=== PATIENT | female | born 1950 | race Caucasian/White ===

== ENCOUNTER 2017-08-29 01:13 | Emergency (ER) | payer MEDICARE, OTHER ==
[~2017-08-29] VITALS: Ht 167.6 cm; Wt 94.5 kg
[~2017-08-29 01:13] MED LIST: BIOT5000 PO; CLON.2 PO; COZA50TA PO; GLUC500C3 PO; GLUCTAB PO; META0.52 PO; NIFE30TA57 PO; OMEG5CAP PO; OXYC1SOL5 PO; TAB-TAB PO; VENL25; VENL75 PO
[2017-08-29 01:15] VITALS: BP 198/89; PULSE 107; RESP 18; TEMP 98.1; O2SAT 94
[2017-08-29 01:26] VITALS: BP 176/79; PULSE 104; RESP 22; O2SAT 96
[2017-08-29] MEDS ORDERED: TRAZ100T6 PO (01:41)
[2017-08-29] MEDS ORDERED: NIFE10CA PO (01:41)
[2017-08-29] MEDS ORDERED: METO25TA3 PO (01:41)
[2017-08-29] MEDS ORDERED: ASPI81CH CHEW (01:41)
[2017-08-29] MEDS ORDERED: METF500T PO (01:41)
[2017-08-29] MEDS ORDERED: GLUC100017 PO (01:41)
[2017-08-29] MEDS ORDERED: MULTTAB67 PO (01:41)
[2017-08-29] MEDS ORDERED: ASCO100037 (01:41)
[2017-08-29] MEDS ORDERED: LOSA50TA PO (01:41)
[2017-08-29] MEDS ORDERED: BIOTCAP PO (01:41)
[2017-08-29] MEDS ORDERED: CLON0.1T PO (01:41)
[2017-08-29] MEDS ORDERED: OMEGCAP PO (01:41)
[2017-08-29] MEDS ORDERED: PSYLPOW4 PO (01:41)
[2017-08-29] MEDS ORDERED: VENL75TA PO (01:41)
[2017-08-29] MEDS ORDERED: RED0.25P (01:41)
--- NOTE | 2017-08-29 02:13 | PD ---
HPI Chief Complaint: Hypertension Time Seen by Provider: 02:03 Travel History International Travel<30 days: No Contact w/Intl Traveler<30days: No Traveled to known affect area: No History of Present Illness HPI The patient is a 67 year old female who presents to the [facility] emergency department with a history of tinnitus, tingling all over, and nausea that began when she woke up in the night. She denies any headache. She is on Nifedipine in the AM. She takes clonidine and losartan at night. She reports that her bp usually goes up at night. Her primary care physician was aware of this and did start her on clonidine at night for treatment. She reports that in spite of this she continues to have frequent episodes of awakening with the symptoms. The patient denies any history of fever, headache, neck pain, chest pain, shortness of breath, abdominal pain, vomiting, diarrhea, urinary symptoms , or other neurologic symptoms. She has had a recent cough and sneezing over the last two days. She reports that she feels this is related to allergy symptoms. She denies having any nasal discharge or productivity to her cough. PCP: Dr. Almaraz. [facility] Past Medical History Narrative Medical The patient's past medical history is significant for diverticulitis, copd, DM, hypertension, and tinnitus. Depression: Yes Cancer: No Cardiovascular Problems: Yes (htn) High Cholesterol: No COPD: Yes Diabetes: Yes Patient Takes Glucophage: Yes Endocrine: Yes Genitourinary: Yes (UTI'S) Hepatitis: Yes (Hep C) Hypertension: Yes Immune Disorder: No Musculoskeletal: Yes Neurologic: No Psychiatric: Yes Reproductive: Yes (HYSTERECTOMY FOR BLEEDING 2006) Respiratory: Yes Migraines: Yes (VISUAL MIGRANES, NO TREATMENT) Thyroid Disease: No Menopausal: Yes Dilation and Curettage (D&C): Yes Past Surgical History Narrative Surgical The patient's past surgical history is significant for hysterectomy, right wrist ORIF, dental extractions, d and C. AICD: No Arteriovenous Shunt: No Cholecystectomy: Yes Ear Surgery: No Endocrine Surgery: No Eye Surgery: No Gynecologic Surgery: Yes (HYSTERECTOMY 2006, D&C IN S) Hysterectomy: Yes Insulin Pump: No Joint Replacement: No Oral Surgery: Yes (TOOTH EXTRACTIONS ) Pacemaker: No Social History Alcohol Use: No Tobacco Use: No Substance Use: No Allergies-Medications (Allergen,Severity, Reaction): Coded Allergies: Sulfa (Sulfonamide Antibiotics) (Unverified Allergy, Mild, Hives, 08/29/17 ) Reported Meds & Prescriptions Reported Meds & Active Scripts Active Augmentin (Amoxicillin-Clavulanate) 875-125 Mg Tab 1 Tab PO BID Reported Red Yeast Rice (Red Yeast Rice Extract) 500 Mg/0.5 Gm Pow Unknown Dose DAILY Biotin 5 Mg Cap 5 Mg PO DAILY Trazodone (Trazodone HCl) 100 Mg Tablet 100 Mg PO HS Clonidine (Clonidine HCl) 0.1 Mg Tab 0.1 Mg PO HS Vitamin C (Ascorbic Acid) 1,000 Mg Tab.chew Glucosamine (Glucosamine Sulfate) 1,000 Mg Cap 1,000 Mg PO DAILY [place]-3 Fish Oil/Vitamin (Fish Oil-Cholecalciferol) 1,000-1,000 Mg Cap 1 Cap PO DAILY Multiple Vitamin 1 Tab 1 Tab PO DAILY Psyllium Powder 100 % Pow 1 Scoop PO TID PRN 1 rounded TEASPOON in 8 oz of liquid at the first sign of irregularity. Aspirin 81 Mg Chew 81 Mg CHEW DAILY Losartan (Losartan Potassium) 50 Mg Tab 50 Mg PO DAILY Effexor (Venlafaxine HCl) 75 Mg Tab 75 Mg PO Q12H Metoprolol Tartrate 25 Mg Tab Unknown Dose PO DAILY Nifedipine 10 Mg Cap Unknown Dose PO QID Metformin (Metformin HCl) 500 Mg Tab 500 Mg PO BIDPC Review of Systems Except as stated in HPI: all other systems reviewed are Neg General / Constitutional: No: Fever Eyes: No: Visual changes HENT: Positive: Other (tinnitus), No: Headaches, Neck Stiffness, Neck Pain, Earache Cardiovascular: No: Chest Pain or Discomfort Respiratory: Positive: Cough, Sneezing, No: Shortness of Breath Gastrointestinal: No: Abdominal Pain Genitourinary: No: Dysuria Musculoskeletal: No: Pain Skin: No Rash Neurologic: Positive: Paresthesia, No: Weakness, Focal Abnormalities, Headache , Change in Mentation, Slurred Speech, Sensory Disturbance Psychiatric: No: Depression Endocrine: No: Polydipsia Hematologic/Lymphatic: No: Easy Bruising Physical Exam Narrative General: The patient is a well-developed well-nourished female in no acute distress. Head and Neck exam: Head is normocephalic atraumatic. Eyes: EOMI, pupils are equal round and reactive to light. Nose: Midline septum with pink mucous membranes Mouth: Dentition unremarkable. Moist mucus membranes. Posterior oropharynx is not erythematous. No tonsillar hypertrophy. Uvula midline. Airway patent. Neck: No palpable lymphadenopathy. No nuchal rigidity. No thyromegaly. Cardiovascular: Regular rate and rhythm without murmurs, gallops, or rubs. No pulse deficit to the extremities on simultaneous auscultation and palpation of the radial artery. Lungs: Clear to auscultation bilaterally. No wheezes, rhonchi, or rales. Abdomen: Soft, without tenderness to palpation in all 4 quadrants of the abdomen. No guarding, rebound, or rigidity. Normal bowel sounds are audible. No tenderness on palpation of McBurney's point. Extremities: No clubbing, cyanosis, or edema. 2+ pulses in all 4 extremities. No calf tenderness on palpation. Back: No spinous process tenderness to palpation. No costovertebral angle tenderness to palpation. Neurologic Exam: Cranial nerves 2-12 were intact on exam. Strength is 5/5 in all 4 extremities. No sensory deficits noted. No dysdiadochokinesis. Good finger to nose and Heel to sutart bilaterally. Skin Exam: No rash noted. Intact skin that is warm and dry. Data Data Last Documented VS Vital Signs Date Time Temp Pulse Resp B/P (MAP) Pulse Ox O2 Delivery O2 Flow Rate FiO2 08/29/17 04:24 08/29/17 03:44 81 16 95 Room Air 08/29/17 01:15 98.1 Orders Orders Electrocardiogram (08/29/17 02:05) Complete Blood Count With Diff (08/29/17 02:05) Comprehensive Metabolic Panel (08/29/17 02:05) Creatine Kinase (Cpk) (08/29/17 02:05) Ckmb (Isoenzyme) Profile (08/29/17 02:05) Troponin I (08/29/17 02:05) B-Type Natriuretic Peptide (08/29/17 02:05) Prothrombin Time / Inr (Pt) (08/29/17 02:05) Act Partial Throm Time (Ptt) (08/29/17 02:05) Lipase (08/29/17 02:05) Urinalysis - C+S If Indicated (08/29/17 02:05) Magnesium (Mg) (08/29/17 02:05) Chest, Single Ap (08/29/17 02:05) Ct Brain W/O Iv Contrast(Rout) (08/29/17 02:05) Iv Access Insert/Monitor (08/29/17 02:05) Ecg Monitoring (08/29/17 02:05) Oximetry (08/29/17 02:05) Potassium Chloride (Kcl) (08/29/17 03:30) Clonidine (Catapres) (08/29/17 03:45) Ed Discharge Order (08/29/17 04:17) Labs Laboratory Tests Test 08/29/17 02:10 White Blood Count 9.4 TH/MM3 Red Blood Count 5.00 MIL/MM3 Hemoglobin 14.3 GM/DL Hematocrit 42.3 % Mean Corpuscular Volume 84.6 FL Mean Corpuscular Hemoglobin 28.5 PG Mean Corpuscular Hemoglobin Concent 33.7 % Red Cell Distribution Width 13.0 % Platelet Count 296 TH/MM3 Mean Platelet Volume 8.5 FL Neutrophils (%) (Auto) 53.4 % Lymphocytes (%) (Auto) 35.1 % Monocytes (%) (Auto) 9.0 % Eosinophils (%) (Auto) 2.1 % Basophils (%) (Auto) 0.4 % Neutrophils # (Auto) 5.0 TH/MM3 Lymphocytes # (Auto) 3.3 TH/MM3 Monocytes # (Auto) 0.8 TH/MM3 Eosinophils # (Auto) 0.2 TH/MM3 Basophils # (Auto) 0.0 TH/MM3 CBC Comment DIFF FINAL Differential Comment Prothrombin Time 9.7 SEC Prothromb Time International Ratio 0.9 RATIO Activated Partial Thromboplast Time 28.3 SEC Blood Urea Nitrogen 12 MG/DL Creatinine 0.68 MG/DL Random Glucose 157 MG/DL Total Protein 7.5 GM/DL Albumin 3.3 GM/DL Calcium Level 9.2 MG/DL Magnesium Level 1.8 MG/DL Alkaline Phosphatase 120 U/L Aspartate Amino Transf (AST/SGOT) 17 U/L Alanine Aminotransferase (ALT/SGPT) 20 U/L Total Bilirubin 0.2 MG/DL Sodium Level 139 MEQ/L Potassium Level 3.3 MEQ/L Chloride Level 102 MEQ/L Carbon Dioxide Level 28.7 MEQ/L Anion Gap 8 MEQ/L Estimat Glomerular Filtration Rate 87 ML/MIN Total Creatine Kinase 64 U/L Troponin I LESS THAN 0.02 NG/ML B-Type Natriuretic Peptide 11 PG/ML Lipase 180 U/L MDM Medical Decision Making Medical Screen Exam Complete: Yes Emergency Medical Condition: Yes Medical Record Reviewed: Yes Interpretation(s) Last Impressions Head CT 08/29/17204 Signed Impressions: Service Date/Time: Tuesday, August 29, 2017 02:32 - CONCLUSION: No definite acute intracranial findings. Hubert Forman MD Chest X-Ray 08/29/17204 Signed Impressions: Service Date/Time: Tuesday, August 29, 2017 02:13 - CONCLUSION: Minimal parenchymal opacity at the right lung base Hubert Forman MD Differential Diagnosis Intracranial hemorrhage, versus intracranial mass, versus hypertensive emergency , versus poorly controlled hypertension, versus anxiety disorder Narrative Course During the course of the patients emergency department visit, the patients history, examination, and differential diagnosis were reviewed with the patient. The patient had IV access obtained and blood work sent for analysis. The patient was put on a monitor technician with oximetry and blood pressure monitoring. An ECG was done on arrival. The patient's ECG reveals sinus rhythm , heart rate of 82, nonspecific T-wave abnormalities, no acute ST segment elevation. T waves are inverted in V1. Initially, I wrote for clonidine to be administered, however the patient's blood pressure came down on its own. The patients laboratory studies were reviewed and remarkable for a CBC that is unremarkable, CMP is remarkable for mild hypokalemia which was supplemented orally, glucose 157, alkaline phosphatase 120, cardiac enzymes within normal limits, BNP 11, albumin 3.3, lipase 180, PT 9.7, PTT 28.3. Radiology studies were reviewed and remarkable for a chest x-ray that shows minimal parenchymal opacity at the right lung base. CT scan of the brain showed no acute abnormality. On repeat evaluation the patient reports that the symptoms have resolved. The patient's blood pressure is noted to be in the 120s over 70s. The patient is unsure of the dose of the losartan that she is on. I recommended that she follow-up with her primary care physician by phone in the morning to discuss increasing her losartan dose. The patient on chest x-ray is noted to have reported infiltrate that is small in the right lung base. She does report having a cough but attributes this to allergies of the last couple of days. The patient is is instructed that if she develops any fevers, worsening cough or congestion, she should start an antibiotic. The patient is given a prescription for Augmentin at discharge. The patient is resting comfortably and feels better, is alert and in no distress. The patients results and examination findings were discussed with the patient. The repeat examination is unremarkable and benign. The history, exam, diagnostic testing, and current condition do not suggest any significant pathology to warrant further testing, continued ED treatment, admission, or surgical evaluation at this point. The vital signs have been stable. The patient does not have uncontrollable pain, intractable vomiting, or other significant symptoms. The patient's condition is stable and appropriate for discharge. The patient will pursue further outpatient evaluation with a primary care physician or other designated or consulting physician as indicated in the discharge instructions. The patient expressed understanding and was agreeable with this plan. Diagnosis Primary Impression: Hypertension Qualified Codes: I10 - Essential (primary) hypertension Additional Impression: Lung infiltrate Referrals: Primary Care Physician 1 day Patient Instructions: Acute Cough (ED), General Instructions, Hypertension (ED) Med/Other Pt SpecificInfo: Prescription(s) given Scripts Amoxicillin-Clavulanate (Augmentin) 875-125 Mg Tab 1 TAB PO BID for Infection, #20 TAB 0 Refills Prov: Lexie Camarena MD 08/29/17 Disposition: 01 DISCHARGE HOME Condition: Stable Lexie Camarena MD Aug 29, 2017 02:13
[2017-08-29 02:34] LABS: BASOPHIL % 0.4 % (0.0-2.0); EOSINOPHIL # 0.2 TH/MM3 (0-0.4); EOSINOPHIL % 2.1 % (0.0-4.0); HEMATOCRIT 42.3 % (35.0-46.0); HEMO FLAGS DIFF FINAL; LYMPH % 35.1 % (9.0-44.0); LYMPHOCYTE # 3.3 TH/MM3 (1.0-4.8); MEAN CELL VOLUME 84.6 FL (80.0-100.0); MEAN CORPUSCULAR HEMOGLOBIN 28.5 PG (27.0-34.0); MEAN CORPUSCULAR HGB CONC 33.7 % (32.0-36.0); NEUT % 53.4 % (16.0-70.0); PLATELET COUNT 296 TH/MM3 (150-450); WHITE BLOOD COUNT 9.4 TH/MM3 (4.0-11.0)
--- NOTE | 2017-08-29 02:36 | RADRPT ---
EXAM DATE/TIME: 08/29/2017 02:13 [facility] COMPARISON: CHEST SINGLE AP, February 04, 2016, 13:02. INDICATIONS : Cough. MEDICAL HISTORY : None. SURGICAL HISTORY : None. ENCOUNTER: Initial ACUITY: 1 day PAIN SCORE: 4/10 LOCATION: Bilateral chest FINDINGS: There is minimal parenchymal opacity at the right lung base. Left lung is clear. No evidence of effus ion. Cardiac contours are satisfactory. CONCLUSION: Minimal parenchymal opacity at the right lung base Hubert Forman MD on August 29, 2017 at 2:33 Board Certified Radiologist. This report was verified electronically.
[2017-08-29 02:39] VITALS: O2SAT 98
[2017-08-29 02:45] LABS: APTT (PATIENT) 28.3 SEC (24.3-30.1); INTERNATIONAL NORMALIZED RATIO 0.9 RATIO; PROTHROMBIN TIME - PATIENT 9.7 SEC (9.8-11.6)
--- NOTE | 2017-08-29 02:46 | RADRPT ---
EXAM DATE/TIME: 08/29/2017 02:32 [facility] COMPARISON: No previous studies available for comparison. INDICATIONS : High blood pressure with nausea RADIATION DOSE: 34.25 CTDIvol (mGy) MEDICAL HISTORY : Hypertension. Chronic obstructive pulmonary disease. Hepatitis C.Diabetes SURGICAL HISTORY : Cholecystectomy. Hysterectomy. ENCOUNTER: Initial ACUITY: 1 day PAIN SCALE: 0/10 LOCATION: cranial TECHNIQUE: Multiple contiguous axial images were obtained of the head. Using automated exposure control and adj ustment of the mA and/or kV according to patient size, radiation dose was kept as low as reasonably a chievable to obtain optimal diagnostic quality images. DICOM format image data is available electro nically for review and comparison. FINDINGS: There are patchy areas of mildly diminished white matter attenuation which are nonspecific but potent ially microvascular ischemic in etiology. There is no evidence of intracranial hemorrhage. No definit e mass. Nothing to specifically suggest vascular territory infarction. There is a tiny old lacunar in farct in the left putamen. The ventricles are symmetric and normal. The extracranial structures are b enign and intact. CONCLUSION: No definite acute intracranial findings. Hubert Forman MD on August 29, 2017 at 2:41 Board Certified Radiologist. This report was verified electronically.
[2017-08-29 03:00] LABS: ALT (GPT) 20 U/L (10-53); ANION GAP 8 MEQ/L (5-15); AST (GOT) 17 U/L (15-37); BICARBONATE 28.7 MEQ/L (21.0-32.0); BLOOD UREA NITROGEN 12 MG/DL (7-18); CHLORIDE 102 MEQ/L (98-107); GLOMERULAR FILTRATION RATE 87 ML/MIN (>89); MAGNESIUM 1.8 MG/DL (1.5-2.5); POTASSIUM 3.3 MEQ/L (3.5-5.1); SODIUM (NA) 139 MEQ/L (136-145)
[2017-08-29 03:04] LABS: ALKALINE PHOSPHATASE 120 U/L (45-117); TOTAL BILIRUBIN ADULT 0.2 MG/DL (0.2-1.0)
[2017-08-29 03:14] LABS: CREATINE KINASE 64 U/L (26-192)
[2017-08-29] MEDS ORDERED: POTASSIUM CHLORIDE 20 MEQ CONTROLLED RELEASE TAB PO ONE (03:30)
[2017-08-29] MEDS ORDERED: AUGM875T3 PO (03:40)
[2017-08-29 03:44] VITALS: BP 120/65; PULSE 81; RESP 16; O2SAT 95
[2017-08-29] MEDS ORDERED: cloNIDine HCL 0.1 MG TAB PO ONE (03:45)
--- NOTE | 2017-08-29 15:02 | EKG ---
Date Performed: 08/29/2017 Time Performed: 02:54:08 PTAGE: 67 years EKG: Sinus rhythm NONSPECIFIC T-WAVE ABNORMALITY BORDERLINE ECG PREVIOUS TRACING : 02/04/2016 17.24 Compared to prior tracing no significant change DOCTOR: Mainor Francisco Interpretating Date/Time 08/29/2017 15:01:06
== END 2017-08-29 04:49 | disposition home or self-care (01) ==
LOC: NEPE 01:13
DX: I10 Essential (primary) hypertension (principal); R91.8 Other nonspecific abnormal finding of lung field; B19.20 Unspecified viral hepatitis C without hepatic coma; J44.9 Chronic obstructive pulmonary disease, unspecified; E11.9 Type 2 diabetes mellitus without complications; R11.0 Nausea; Z79.84 Long term (current) use of oral hypoglycemic drugs; Z79.899 Other long term (current) drug therapy
CPT/HCPCS: 70450; 71010; 80053; 82550; 83690; 83735; 83880; 84484; 85025; 85610; 85730; 93005; 99285

== ENCOUNTER 2018-01-21 16:25 | Emergency (ER) | payer MEDICARE ==
[~2018-01-21 16:25] MED LIST changes: +ASCO100037; +ASPI-516 CHEW; +AUGM875T3 PO; -BIOT5000 PO; +BIOTCAP PO; -CLON.2 PO; +CLON0.1T PO; -COZA50TA PO; +GLUC100013 PO; -GLUC500C3 PO; -GLUCTAB PO; +LOSA50TA PO; -META0.52 PO; +METF500T PO; +METO25TA3 PO; +MULTTAB67 PO; +NIFE10CA PO; -NIFE30TA57 PO; -OMEG5CAP PO; +OMEGCAP PO; -OXYC1SOL5 PO; +PSYLPOW4 PO; +RED0.25P; -TAB-TAB PO; +TRAZ100T10 PO; -VENL25; -VENL75 PO; +VENL75TA PO
[2018-01-21 16:32] VITALS: BP 129/68; PULSE 82; RESP 19; TEMP 98.3; O2SAT 95
--- NOTE | 2018-01-21 17:16 | RADRPT ---
EXAM DATE/TIME: 01/21/2018 16:54 [facility] COMPARISON: No previous studies available for comparison. INDICATIONS : Right anterior chest pain MEDICAL HISTORY : Chronic obstructive pulmonary disease. Emphysema. Hypertension. Bronchitis SURGICAL HISTORY : None. ENCOUNTER: Initial ACUITY: 1 day PAIN SCORE: 2/10 LOCATION: Right chest FINDINGS: PA and lateral views of the chest demonstrate the lungs to be symmetrically aerated without evidence of mass, infiltrate or effusion. The cardiomediastinal contours are unremarkable. Osseous structure s are intact. CONCLUSION: No acute disease. Star Bennett Jr., MD on January 21, 2018 at 17:14 Board Certified Radiologist. This report was verified electronically.
[2018-01-21 20:03] LABS: AUTOMATED NEUTROPHIL # 6.3 TH/MM3 (1.8-7.7); BASOPHIL # 0.1 TH/MM3 (0-0.2); BASOPHIL % 0.5 % (0.0-2.0); EOSINOPHIL # 0.5 TH/MM3 (0-0.4); EOSINOPHIL % 4.8 % (0.0-4.0); HEMATOCRIT 38.6 % (35.0-46.0); HEMOGLOBIN 12.8 GM/DL (11.6-15.3); LYMPH % 25.4 % (9.0-44.0); LYMPHOCYTE # 2.7 TH/MM3 (1.0-4.8); MEAN CELL VOLUME 84.7 FL (80.0-100.0); MEAN CORPUSCULAR HEMOGLOBIN 28.1 PG (27.0-34.0); MEAN CORPUSCULAR HGB CONC 33.2 % (32.0-36.0); MEAN PLATELET VOLUME 8.2 FL (7.0-11.0); MONO % 9.5 % (0.0-8.0); NEUT % 59.8 % (16.0-70.0); PLATELET COUNT 290 TH/MM3 (150-450); RED BLOOD COUNT 4.55 MIL/MM3 (4.00-5.30); RED CELL DISTRIBUTION WIDTH 13.1 % (11.6-17.2); WHITE BLOOD COUNT 10.5 TH/MM3 (4.0-11.0)
--- NOTE | 2018-01-21 20:14 | PD ---
HPI Chief Complaint: Pain: Acute or Chronic Time Seen by Provider: 16:32 Travel History International Travel<30 days: No Contact w/Intl Traveler<30days: No Traveled to known affect area: No History of Present Illness HPI 67-year-old female presents to emergency department as an ERT. Patient was visiting her upstairs when she developed a pain under her right breast. She states the pain is alleviated by pressure if she pushes on it. Denies any trauma. No shortness of breath. No recent illnesses fever, or chills. She has no other symptoms to report. PFSH Past Medical History Depression: Yes Cancer: No Cardiovascular Problems: Yes High Cholesterol: No COPD: Yes Diabetes: Yes Endocrine: Yes Genitourinary: Yes (UTI'S) Hepatitis: Yes (Hep C) Hypertension: Yes Immune Disorder: No Musculoskeletal: Yes Neurologic: No Psychiatric: Yes Reproductive: Yes (HYSTERECTOMY FOR BLEEDING 2006) Respiratory: Yes Migraines: Yes (VISUAL MIGRANES, NO TREATMENT) Thyroid Disease: No Menopausal: Yes Dilation and Curettage (D&C): Yes Past Surgical History AICD: No Arteriovenous Shunt: No Cholecystectomy: Yes Ear Surgery: No Endocrine Surgery: No Eye Surgery: No Gynecologic Surgery: Yes (HYSTERECTOMY 2006, D&C IN S) Hysterectomy: Yes Insulin Pump: No Joint Replacement: No Oral Surgery: Yes (TOOTH EXTRACTIONS ) Pacemaker: No Social History Alcohol Use: No Tobacco Use: No Substance Use: No Allergies-Medications (Allergen,Severity, Reaction): Coded Allergies: Sulfa (Sulfonamide Antibiotics) (Unverified Allergy, Mild, Hives, 08/29/17 ) Reported Meds & Prescriptions Reported Meds & Active Scripts Active Augmentin (Amoxicillin-Clavulanate) 875-125 Mg Tab 1 Tab PO BID Reported Red Yeast Rice (Red Yeast Rice Extract) 500 Mg/0.5 Gm Pow Unknown Dose DAILY Biotin 5 Mg Cap 5 Mg PO DAILY Trazodone (Trazodone HCl) 100 Mg Tablet 100 Mg PO HS Clonidine (Clonidine HCl) 0.1 Mg Tab 0.1 Mg PO HS Vitamin C (Ascorbic Acid) 1,000 Mg Tab.chew Glucosamine (Glucosamine Sulfate) 1,000 Mg Cap 1,000 Mg PO DAILY [place]-3 Fish Oil/Vitamin (Fish Oil-Cholecalciferol) 1,000-1,000 Mg Cap 1 Cap PO DAILY Multiple Vitamin 1 Tab 1 Tab PO DAILY Psyllium Powder 100 % Pow 1 Scoop PO TID PRN 1 rounded [place] in 8 oz of liquid at the first sign of irregularity. Aspirin 81 Mg Chew 81 Mg CHEW DAILY Losartan (Losartan Potassium) 50 Mg Tab 50 Mg PO DAILY Effexor (Venlafaxine HCl) 75 Mg Tab 75 Mg PO Q12H Metoprolol Tartrate 25 Mg Tab Unknown Dose PO DAILY Nifedipine 10 Mg Cap Unknown Dose PO QID Metformin (Metformin HCl) 500 Mg Tab 500 Mg PO BIDPC Review of Systems Except as stated in HPI: all other systems reviewed are Neg Physical Exam Narrative Well-nourished elderly female patient appears nontoxic, sitting in her wheelchair, no acute distress. Head is normocephalic. Her pupils are equal and reactive. She has even respirations. She has a regular heart rate. She has no obvious deformities. She is speaking to be clearly. Data Data Last Documented VS Vital Signs Date Time Temp Pulse Resp B/P (MAP) Pulse Ox O2 Delivery O2 Flow Rate FiO2 01/21/18 16:32 98.3 82 19 129/68 (88) 95 Orders Orders Complete Blood Count With Diff (01/21/18 16:34) Comprehensive Metabolic Panel (01/21/18 16:34) Lipase (01/21/18 16:34) Chest, Pa & Lat (01/21/18 16:34) Labs Laboratory Tests Test 01/21/18 18:57 White Blood Count 10.5 TH/MM3 Red Blood Count 4.55 MIL/MM3 Hemoglobin 12.8 GM/DL Hematocrit 38.6 % Mean Corpuscular Volume 84.7 FL Mean Corpuscular Hemoglobin 28.1 PG Mean Corpuscular Hemoglobin Concent 33.2 % Red Cell Distribution Width 13.1 % Platelet Count 290 TH/MM3 Mean Platelet Volume 8.2 FL Neutrophils (%) (Auto) 59.8 % Lymphocytes (%) (Auto) 25.4 % Monocytes (%) (Auto) 9.5 % Eosinophils (%) (Auto) 4.8 % Basophils (%) (Auto) 0.5 % Neutrophils # (Auto) 6.3 TH/MM3 Lymphocytes # (Auto) 2.7 TH/MM3 Monocytes # (Auto) 1.0 TH/MM3 Eosinophils # (Auto) 0.5 TH/MM3 Basophils # (Auto) 0.1 TH/MM3 CBC Comment DIFF FINAL Differential Comment Blood Urea Nitrogen 14 MG/DL Creatinine 0.82 MG/DL Random Glucose 96 MG/DL Total Protein 7.2 GM/DL Albumin 3.2 GM/DL Calcium Level 9.1 MG/DL Alkaline Phosphatase 91 U/L Aspartate Amino Transf (AST/SGOT) 27 U/L Alanine Aminotransferase (ALT/SGPT) 15 U/L Total Bilirubin 0.2 MG/DL Sodium Level 138 MEQ/L Potassium Level 3.9 MEQ/L Chloride Level 102 MEQ/L Carbon Dioxide Level 28.5 MEQ/L Anion Gap 8 MEQ/L Estimat Glomerular Filtration Rate 70 ML/MIN Lipase 125 U/L [facility] Medical Decision Making Medical Screen Exam Complete: Yes Emergency Medical Condition: Yes Medical Record Reviewed: Yes Differential Diagnosis Pleuritic pain versus chest wall pain versus contusion versus cholecystitis versus ACS Narrative Course 67-year-old female presents emergency department for evaluation of pain under her right breast. Patient appears without distress. Vital signs are stable. Workup is initiated in triage. Prior to the placement, patient chooses to leave AMA: The risks of leaving against medical advice without further evaluation treatment were discussed with the patient. These risks include cardiac dysfunction, cardiac dysrhythmia, possible heart attack, possible stroke or . The patient indicated understanding of these risks and appeared to have the capacity to make this decision. Diagnosis Primary Impression: Chest wall pain Disposition: 07 AGAINST MEDICAL ADVICE Condition: Stable Elizabeth Summers Jan 21, 2018 20:14
[2018-01-21 20:18] LABS: ALBUMIN 3.2 GM/DL (3.4-5.0); ALT (GPT) 15 U/L (10-53); AST (GOT) 27 U/L (15-37); BICARBONATE 28.5 MEQ/L (21.0-32.0); BLOOD UREA NITROGEN 14 MG/DL (7-18); CALCIUM 9.1 MG/DL (8.5-10.1); CHLORIDE 102 MEQ/L (98-107); CREATININE 0.82 MG/DL (0.50-1.00); GLOMERULAR FILTRATION RATE 70 ML/MIN (>89); GLUCOSE,RANDOM 96 MG/DL (74-106); SODIUM (NA) 138 MEQ/L (136-145)
[2018-01-21 20:20] LABS: ALKALINE PHOSPHATASE 91 U/L (45-117); TOTAL BILIRUBIN ADULT 0.2 MG/DL (0.2-1.0); TOTAL PROTEIN 7.2 GM/DL (6.4-8.2)
== END 2018-01-21 18:58 | disposition left against medical advice (07) ==
LOC: NED 16:25
DX: R07.89 Other chest pain (principal); Z53.21 Procedure and treatment not carried out due to patient leaving prior to being seen by health care provider; J44.9 Chronic obstructive pulmonary disease, unspecified; E11.9 Type 2 diabetes mellitus without complications; I10 Essential (primary) hypertension; B19.20 Unspecified viral hepatitis C without hepatic coma
CPT/HCPCS: 71046; 80053; 83690; 85025; 99284